=== PATIENT | male | born 1940 | race African-American/Black ===

== ENCOUNTER 2019-05-21 07:37 | Outpatient (CLI) | payer MEDICARE, BC ==
--- NOTE | 2019-05-21 10:08 | MRI ---
MRI CERVICAL SPINE WITHOUT CONTRAST: Date: 05/21/19 HISTORY: Right arm numbness. COMPARISON: None. FINDINGS: There is T1 marrow signal hypointensity with heterogenous associated T2 or STIR hyperintensity involv ing C2, C3, C4, C5, and C6. The distal cervical spine, as well as the upper thoracic spine have a het erogeneous marrow signal intensity which may be due to senescent change. The marrow signal intensity in the upper cervical spine is presumed to be on the basis of degenerative change. Visualized brain parenchyma, cervicomedullary junction, cervical cord, and the upper thoracic cord drake ve a normal size and signal intensity. There appears to be fatty atrophy of the right parotid gland. The visualized prevertebral soft tissue s and paraspinal muscles are unremarkable. C2-C3: Broad based disc osteophyte complex causing mass effect upon the ventral subarachnoid space. Ventral subarachnoid space is maintained with minimal mass effect and deformity of the cervical cord, without T2 hyperintensity of the cord. Mild central canal stenosis. Moderate right and mild left iraj ral foraminal narrowing due to uncovertebral hypertrophy. C3-C4: Broad based disc osteophyte complex abuts the thecal sac and nearly effaces the ventral subar achnoid space. Mild deformity of the ventral cord, without T2 hyperintensity of the cord. Mild centra l canal stenosis. Moderate to severe bilateral foraminal narrowing due to uncovertebral hypertrophy. C4-C5: Broad based disc osteophyte complex abuts the thecal sac. There is deformity of the ventral c ord. Mild to moderate central canal stenosis. No cord signal hyperintensity. Severe bilateral foramin al narrowing due to uncovertebral hypertrophy. C5-C6: Broad based disc osteophyte complex abuts the thecal sac. Subarachnoid space is maintained. N o significant mass effect upon the cervical cord. Mild central canal stenosis. Moderate to severe rig ht and severe left foraminal narrowing due to uncovertebral hypertrophy. C6-C7: Broad based disc osteophyte complex abuts the thecal sac. Subarachnoid space is maintained. M inimal flattening of the ventral cord without cord hyperintensity. Mild central anal stenosis. Severe bilateral neural foraminal narrowing due to uncovertebral hypertrophy. C7-T1: No high grade central canal stenosis. Mild to moderate bilateral foraminal narrowing due to u ncovertebral hypertrophy. IMPRESSION: 1. Abnormal T1 marrow signal intensity involving the cervical spine, likely due to degenerative mccormick ge. There is heterogeneous T2 and STIR hyperintensity suggesting a combination of Type I and Type II Modic changes at multiple disc spaces. 2. Degenerative change with significant central canal stenosis and neural foraminal narrowing as kenneth cribed above. POS: [facility]
== END 2019-05-21 07:38 | disposition home or self-care (01) ==
LOC: TBSIIMAG 07:37
PROVIDERS: ATTEND Orthopaedic Surgery
DX: M47.22 Other spondylosis with radiculopathy, cervical region (principal); M48.02 Spinal stenosis, cervical region
CPT/HCPCS: 72141

== ENCOUNTER 2020-05-12 12:28 | Outpatient (CLI) | payer MEDICARE, BC ==
--- NOTE | 2020-05-12 12:55 | RAD ---
EXAM: XR Cerv Sp Ap Lat STANDARD DATE: 05/12/2020 12:00 AM INDICATION: Postoperative cervical spine COMPARISON: MR of the cervical spine dated May 21, 2019. FINDING: Since the comparison examination there is been interval performance of an ACDF spanning C4- C7. There are intervertebral disc cage is seen at C4-5, C5-6 and C6-7. There is stable mild anterior translation of C7 on T1 with mild retrolisthesis of C2 on C3. The moderate multilevel facet osteoarthritic change is similar appearing. There is mild soft tissue swelling within the prevertebral soft tissues is likely postoperative. Lung apices are clear. IMPRESSION:Postoperative cervical spine.
== END 2020-05-12 12:29 | disposition home or self-care (01) ==
LOC: TBSIIMAG 12:28
PROVIDERS: ATTEND Neurological Surgery
DX: M54.12 Radiculopathy, cervical region (principal); Z98.890 Other specified postprocedural states
CPT/HCPCS: 72040

== ENCOUNTER 2020-06-29 08:03 | Outpatient (CLI) | payer MEDICARE, BC ==
--- NOTE | 2020-06-29 10:31 | RAD ---
CERVICAL SPINE 3 VIEWS: Date: 06/29/2020 HISTORY: Cervical radiculopathy. COMPARISON: 05/12/2020. FINDINGS: Anterior cervical fusion changes noted at C4, C5, C6, and C7, with intradiscal prosthesis. The previo usly noted prevertebral soft tissue swelling has considerably diminished when compared to the prior e xam of 05/12/2020. Generalized disc osteophytosis and facet arthrosis changes. No significant malalignment. IMPRESSION: Anterior cervical fusion changes at C4 through C7. Decreased prevertebral soft tissue swelling when c ompared to prior study. No significant malalignment. Generalized spondylosis. If there is clinical concern for some type of mass or focal swelling underneath the chin, additional imaging would be of benefit in that regard. POS: OFF
== END 2020-06-29 08:04 | disposition home or self-care (01) ==
LOC: TBSIIMAG 08:03
PROVIDERS: ATTEND Neurological Surgery
DX: M47.22 Other spondylosis with radiculopathy, cervical region (principal); M79.89 Other specified soft tissue disorders; Z98.1 Arthrodesis status
CPT/HCPCS: 72040